=== PATIENT | female | born 1935 | race Caucasian/White ===

== ENCOUNTER 2021-04-13 14:52 | Inpatient (IN) | payer MEDICARE ==
[~2021-04-13] VITALS: Ht 157.5 cm; Wt 92.3 kg
[~2021-04-13 14:52] MED LIST: CARDURA2 MG PO; COZAAR50 MG PO; FUROSEMIDE 40MG40 MG PO; NEURONTIN100 MG PO; NORCO 5-325 TA1 EACH PO; SIMVASTATIN20 MG PO; UROCIT-K10 MEQ PO; VITAMIN D1000 UNIT PO
[2021-04-13 15:54] LABS: BASOPHIL 0.5 % (0-2); EOSINOPHIL 1.7 % (0-7); HCT 45.1 % (37.0-47.0); HGB 14.3 g/dl (12.5-16.0); LYMPHOCYTE 23.8 % (15-48); MCH 27.7 pg (25.0-31.0); MCHC 31.7 g/dL (32.0-36.0); MCV 87.4 fL (78.0-100.0); MONOCYTE 8.2 % (0-12); MPV 10.7 fL (6.0-9.5); NEUTROPHIL 65.6 % (41-80); NRBC 0; PLT 287 K/uL (150-400); RBC 5.16 M/uL (4.20-5.40); RDW 15.2 % (11.5-14.0); WBC 10.1 K/uL (4.0-10.5)
[2021-04-13 15:57] LABS: BILIRUBIN NEGATIVE (NEGATIVE); BLOOD NEGATIVE Ery/uL (NEGATIVE); CLARITY CLEAR (CLEAR); COLOR YELLOW (YELLOW); GLUCOSE (U) NORMAL (NORMAL); LEUKOCYTES NEGATIVE Leu/uL (NEGATIVE); NITRITE NEGATIVE (NEGATIVE); PROTEIN NEGATIVE (NEGATIVE); SPECIFIC GRAVITY 1.015 (1.001-1.030); UROBILINOGEN 0.2 mg/dL (0.2-1.0)
[2021-04-13 16:10] LABS: ALBUMIN 3.7 g/dL (3.4-5.0); BILIRUBIN - TOTAL 0.4 mg/dL (0.2-1.0); BUN/CREAT RATIO (CALC) 21.4 RATIO; CREATININE 1.03 mg/dL (0.51-0.95); MAGNESIUM 1.8 mg/dL (1.8-2.4); POTASSIUM 4.5 mmol/L (3.5-5.1); TOTAL PROTEIN 6.7 g/dL (6.4-8.2)
[2021-04-13 16:17] LABS: PRO-BNP 590 pg/mL (<450)
[2021-04-13] MEDS ORDERED: ATENOLOL25 MG PO (21:09)
[2021-04-13] MEDS ORDERED: ZINC10 MG PO (21:10)
[2021-04-13] MEDS ORDERED: GLUCOSAMINE CH1 EAC2 PO (21:11)
[2021-04-14 06:02] LABS: BASOPHIL 0.5 % (0-2); EOSINOPHIL 1.3 % (0-7); HCT 43.7 % (37.0-47.0); HGB 13.8 g/dl (12.5-16.0); LYMPHOCYTE 22.6 % (15-48); MCH 27.4 pg (25.0-31.0); MCHC 31.6 g/dL (32.0-36.0); MCV 86.7 fL (78.0-100.0); MONOCYTE 8.1 % (0-12); MPV 10.6 fL (6.0-9.5); NEUTROPHIL 67.2 % (41-80); NRBC 0; PLT 245 K/uL (150-400); RBC 5.04 M/uL (4.20-5.40); WBC 9.4 K/uL (4.0-10.5)
[2021-04-14 06:04] LABS: ALBUMIN 3.3 g/dL (3.4-5.0); BILIRUBIN - TOTAL 0.4 mg/dL (0.2-1.0); BUN/CREAT RATIO (CALC) 21.2 RATIO; CREATININE 0.99 mg/dL (0.51-0.95); GLOBULIN (CALCULATION) 2.7 g/dL
[2021-04-14 06:15] LABS: CKMB 1.8 ng/mL (0.0-3.6); PRO-BNP 681 pg/mL (<450)
--- NOTE | 2021-04-14 16:08 | NUR ---
04/14/21 Ms. Girard lives at home with her spouse. HH is not current and she doesn't believe she will need HH at discharge. Ms. Girard has home 02 (she has not been using), concentrator, C-PAP, rw, and s. chair. She does not have portable 02. - [employer] verified patient's co-pay for Eloquis will be $60.30. She reports this amount to be affordable. Dr. Murillo was informed.
[2021-04-15 06:39] LABS: BASOPHIL 0.6 % (0-2); EOSINOPHIL 1.9 % (0-7); HCT 43.5 % (37.0-47.0); HGB 13.8 g/dl (12.5-16.0); LYMPHOCYTE 24.3 % (15-48); MCH 27.6 pg (25.0-31.0); MCHC 31.7 g/dL (32.0-36.0); MONOCYTE 8.7 % (0-12); MPV 10.9 fL (6.0-9.5); NEUTROPHIL 64.2 % (41-80); NRBC 0; PLT 237 K/uL (150-400); RDW 15.2 % (11.5-14.0); WBC 7.7 K/uL (4.0-10.5)
--- NOTE | 2021-04-15 08:46 | NUR ---
PATIENT O2 SATS 90-91% ON ROOM AIR AT REST IN CHAIR. O2 2L PER NC PLACED BACK ON PATIENT
[2021-04-15] MEDS ORDERED: ELIQUIS5 MG PO (11:49)
--- NOTE | 2021-04-15 13:19 | NUR ---
1310--IV REMOVED. DISCUSSED DISCHARGE INSTRUCTIONS WITH PATIENT AND FAMILY. PATIENT IS STABLE, DOES NOT REQUIRE OXYGEN FOR HOME. D/C HOME WITH FAMILY
--- NOTE | 2021-04-15 17:35 | NUR ---
04/15/21 Home 02 was not required per walk test.
== END 2021-04-15 13:10 | disposition home or self-care (01) | DRG 176 ==
LOC: FER 14:52 → FMS 18:56 → FER 20:20 → FMS 20:20
PROVIDERS: Internal Medicine; Internal Medicine Cardiovascular Disease; Nurse Practitioner; ADMIT Internal Medicine
DX: I26.99 Other pulmonary embolism without acute cor pulmonale (principal); R06.02 Shortness of breath; M79.604 Pain in right leg; M79.605 Pain in left leg; R42 Dizziness and giddiness; E78.5 Hyperlipidemia, unspecified; I27.20 Pulmonary hypertension, unspecified; I10 Essential (primary) hypertension; I07.1 Rheumatic tricuspid insufficiency; I35.8 Other nonrheumatic aortic valve disorders; I11.0 Hypertensive heart disease with heart failure; Z20.822 Contact with and (suspected) exposure to COVID-19; I50.9 Heart failure, unspecified; I65.29 Occlusion and stenosis of unspecified carotid artery; Z79.899 Other long term (current) drug therapy; Z91.040 Latex allergy status; Z88.5 Allergy status to narcotic agent; Z88.0 Allergy status to penicillin; Z88.8 Allergy status to other drugs, medicaments and biological substances; Z88.1 Allergy status to other antibiotic agents; Z90.49 Acquired absence of other specified parts of digestive tract
CPT/HCPCS: 36415; 71045; 71275; 80048; 80053; 80061; 81003; 82553; 83735; 83880; 84484; 85025; 93005; 93880; 93970; 94010; 94760; J1940; Q9967; U0002

== ENCOUNTER 2021-06-30 11:25 | Emergency (ER) | payer MEDICARE ==
[~2021-06-30 11:25] MED LIST changes: +ATENOLOL25 MG PO; +ELIQUIS5 MG PO; +GLUCOSAMINE CH1 EAC2 PO; +ZINC10 MG PO
[2021-06-30 13:48] LABS: BASOPHIL 0.6 % (0-2); EOSINOPHIL 1.7 % (0-7); HGB 14.8 g/dl (12.5-16.0); LYMPHOCYTE 23.6 % (15-48); MCH 28.9 pg (25.0-31.0); MCHC 32.2 g/dL (32.0-36.0); MCV 89.8 fL (78.0-100.0); MONOCYTE 6.5 % (0-12); MPV 11.5 fL (6.0-9.5); NEUTROPHIL 67.2 % (41-80); NRBC 0; PLT 287 K/uL (150-400); RBC 5.12 M/uL (4.20-5.40); RDW 14.3 % (11.5-14.0); WBC 10.3 K/uL (4.0-10.5)
[2021-06-30 13:49] LABS: ALBUMIN 3.7 g/dL (3.4-5.0); BILIRUBIN - TOTAL 0.3 mg/dL (0.2-1.0); BUN/CREAT RATIO (CALC) 16.3 RATIO; CREATININE 0.86 mg/dL (0.51-0.95); GLOBULIN (CALCULATION) 3.2 g/dL; POTASSIUM 4.3 mmol/L (3.5-5.1); TOTAL PROTEIN 6.9 g/dL (6.4-8.2)
[2021-06-30 13:55] LABS: CORONAVIRUS 2019 SARS-COV-2 NEGATIVE (NEGATIVE); INFLUENZA A NAA NEGATIVE (NEGATIVE)
[2021-06-30] MEDS ORDERED: FLEXERIL5 MG PO (15:22)
== END 2021-06-30 15:40 | disposition home or self-care (01) ==
LOC: FER 11:25
PROVIDERS: Internal Medicine
DX: R07.89 Other chest pain (principal); I10 Essential (primary) hypertension; Z86.711 Personal history of pulmonary embolism; Z88.0 Allergy status to penicillin; Z88.1 Allergy status to other antibiotic agents; Z88.5 Allergy status to narcotic agent; Z91.040 Latex allergy status; Z79.899 Other long term (current) drug therapy; Z20.822 Contact with and (suspected) exposure to COVID-19; Z79.01 Long term (current) use of anticoagulants
CPT/HCPCS: 36415; 71275; 80053; 84484; 85025; 93005; Q9967; U0002

== ENCOUNTER 2022-06-16 14:17 | Emergency (ER) | payer MEDICARE ==
[~2022-06-16 14:17] MED LIST changes: +FLEXERIL5 MG PO
[2022-06-16] MEDS ORDERED: NORVASC5 MG PO (17:54)
[2022-06-16] MEDS ORDERED: MEDROL 4MG DOSEP4 MG PO (17:54)
== END 2022-06-16 18:12 | disposition home or self-care (01) ==
LOC: FER 14:17
DX: S86.912A Strain of unspecified muscle(s) and tendon(s) at lower leg level, left leg, initial encounter (principal); I10 Essential (primary) hypertension; E78.5 Hyperlipidemia, unspecified; Z79.899 Other long term (current) drug therapy; Z79.01 Long term (current) use of anticoagulants
CPT/HCPCS: 93971; J1100